=== PATIENT | male | born 1950 | race Caucasian/White ===

== ENCOUNTER 2017-06-18 11:46 | Emergency (ER) | payer MEDICARE, BC ==
[2017-06-18] MEDS ORDERED: NS 0.9% 1000 ML* 1,000 ML IV ONE (13:18)
--- NOTE | 2017-06-18 13:57 | RAD ---
INDICATION: Abdominal discomfort COMPARISON: None TECHNIQUE: Erect and supine views of the abdomen are submitted. FINDINGS: Bones: There are no acute bony findings. Soft tissues: The soft tissues appear normal. The psoas margins are sharp. Bowel gas pattern: There is no obstruction. There is large amount retained stool Calcifications: There are no abnormal calcifications. Other: None IMPRESSION: LARGE AMOUNT OF RETAINED STOOL.
[2017-06-18 14:02] LABS: Hematocrit 41 % (42-52); Hemoglobin 13.9 g/dl (14.0-18.0); Mean Corpuscular HGB Conc 34 g/dl (31-36); Mean Corpuscular Hemoglobin 34 pg (27-31); Mean Corpuscular Volume 99 fL (80-94); Mean Platelet Volume 8 um3 (7.4-10.4); Red Cell Distribution Width 12 % (10.5-15)
[2017-06-18] MEDS ORDERED: Polyethylene Glycol 3350* 17 GM PACKET PO PRN (14:05)
[2017-06-18] MEDS ORDERED: Sodium Phosphate ADULT ENEMA* 118 ml bottle PR ONE (14:05)
[2017-06-18] MEDS ORDERED: Magnesium CITRATE* 300 ML BTL PO ONE (14:05)
[2017-06-18 14:23] LABS: ALT 26 U/L (7-52); AST 23 U/L (13-39); Albumin 4.1 g/dL (3.2-5.2); Alkaline Phosphatase 77 U/L (34-104); Anion Gap 6 mmol/L (2-11); BUN/Creatinine Ratio 20.7 (8-20); Blood Urea Nitrogen 24 mg/dL (6-24); C Reactive Protein < 1.00 mg/L (< 5.00); CO2 Carbon Dioxide 27 mmol/L (22-32); Calcium 9.5 mg/dL (8.6-10.3); Chloride 100 mmol/L (101-111); EGFR African American 80.5 (>60); EGFR Non-African American 62.6 (>60); Globulin 2.7 g/dL (2-4); Glucose 102 mg/dL (70-100); Lipase 66 U/L (11.0-82.0); Potassium 4.2 mmol/L (3.5-5.0); Sodium 133 mmol/L (133-145); Total Protein 6.8 g/dL (6.4-8.9)
[2017-06-18 18:26] VITALS: BP 142/78
--- NOTE | 2017-06-18 18:35 | ED ---
Jw Mustafa Thomas, scribed for Darnell Zhang MD on 06/18/17 at 1339 . GI/ HPI - HPI Summary HPI Summary: The pt is a 66 y/o with a Hx of Lewy body dementia presenting to the ED c/o constipation on and off for the last three weeks. He says that he last took a BM a week ago. He denies abd pain or any other symptoms. He denies opioid use or history of abdominal surgeries. The patient lives alone. His son and daughter are in the room and provide much of the history. They suspect that he may be dehydrated. His neurologist is Dr. Brownlee. - History of Current Complaint Chief Complaint: EDGeneral Time Seen by Provider: 06/18/17 13:00 Stated Complaint: ABD PAIN Hx Obtained From: Patient, Family/Injector Assembler - son and daughter are in the room and provide much of history Onset/Duration: Started Weeks Ago - constipation on and off last three weeks, Still Present, Worse Since - last BM a week ago Timing: Constant Current Severity: Severe Pain Intensity: 0 Associated Signs and Symptoms: Positive: Constipation. Negative: Abdominal Pain Aggravating Factor(s): Nothing Alleviating Factor(s): Nothing - Allergy/Home Medications Allergies/Adverse Reactions: Allergies Allergy/AdvReac Type Severity Reaction Status Date / Time No Known Allergies Allergy Verified 06/18/17 16:52 Home Medications: Home Medications Donepezil TAB* [Aricept 5 MG TAB*] 5 mg PO DAILY 06/18/17 [History Confirmed ] Omeprazole CAP* [Prilosec CAP* 20 MG] 20 mg PO DAILY 06/18/17 [History Confirmed 06/18/17] Phenobarbital 97.2 mg PO BEDTIME 06/18/17 [History Confirmed 06/18/17] Quinapril (NF) [Accupril (NF)] 5 mg PO DAILY 06/18/17 [History Confirmed ] PMH/Surg Hx/FS Hx/Imm Hx Previously Healthy: No Cardiovascular History: Reports: Hx Coronary Artery Disease Neurological History: Reports: Other Neuro Impairments/Disorders - Hx of Lewy body dementia, epilepsy - Surgical History Surgery Procedure, Year, and Place: None Infectious Disease History: No Infectious Disease History: Denies: Traveled Outside the [place] in Last 30 Days - Family History Known Family History: Negative: Other - Negative for Lewy body dementia - Social History Occupation: Retired Lives: Alone Smoking Status (MU): Never Smoked Tobacco Review of Systems Negative: Fever Positive: Other - Constipation on and off for last three weeks. Last BM a week ago. Negative: Abdominal Pain All Other Systems Reviewed And Are Negative: Yes Physical Exam - Summary Physical Exam Summary: VITAL SIGNS: Reviewed. GENERAL: Patient is a well-developed and nourished male who is lying comfortable in the stretcher. Patient is not in any acute respiratory distress. HEAD AND FACE: No signs of trauma. No ecchymosis, hematomas or skull depressions. No sinus tenderness. EYES: PERRLA, EOMI x 2, No injected conjunctiva, no nystagmus. EARS: Hearing grossly intact. Ear canals and tympanic membranes are within normal limits. MOUTH: Oropharynx within normal limits. NECK: Supple, trachea is midline, no adenopathy, no JVD, no carotid bruit, no c- spine tenderness, neck with full ROM. CHEST: Symmetric, no tenderness at palpation LUNGS: Clear to auscultation bilaterally. No wheezing or crackles. CVS: Regular rate and rhythm, S1 and S2 present, no murmurs or gallops appreciated. ABDOMEN: Soft, non-tender. No signs of distention. No rebound no guarding, and no masses palpated. Bowel sounds are normal. EXTREMITIES: FROM in all major joints, no edema, no cyanosis or clubbing. NEURO: Alert but not oriented. No acute neurological deficits. Speech is normal and follows commands. SKIN: Dry and warm Triage Information Reviewed: Yes Vital Signs On Initial Exam: Initial Vitals Temp Pulse Resp BP Pulse Ox 98.1 F 96 16 156/79 99 06/18/17 11:49 06/18/17 11:49 06/18/17 11:49 06/18/17 11:49 06/18/17 11:49 Vital Signs Reviewed: Yes Diagnostics - Vital Signs Vital Signs Temp Pulse Resp BP Pulse Ox 06/18/17 11:49 98.1 F 96 16 156/79 99 - Laboratory Lab Results: Lab Results 06/18/17 06/18/17 Range/Units 13:46 13:46 WBC 6.0 (3.5-10.8) 10^3/ul RBC 4.10 (4.0-5.4) 10^6/ul Hgb 13.9 L (14.0-18.0) g/dl Hct 41 L (42-52) % MCV 99 H (80-94) fL MCH 34 H (27-31) pg MCHC 34 (31-36) g/dl RDW 12 (10.5-15) % Plt Count 185 (150-450) 10^3/ul MPV 8 (7.4-10.4) um3 Neut % (Auto) 81.6 (38-83) % Lymph % (Auto) 9.7 L (25-47) % [place] % (Auto) 8.0 (1-9) % Eos % (Auto) 0.3 (0-6) % Baso % (Auto) 0.4 (0-2) % Absolute Neuts (auto) 4.9 (1.5-7.7) 10^3/ul Absolute Lymphs (auto) 0.6 L (1.0-4.8) 10^3/ul Absolute Monos (auto) 0.5 (0-0.8) 10^3/ul Absolute Eos (auto) 0 (0-0.6) 10^3/ul Absolute Basos (auto) 0 (0-0.2) 10^3/ul Absolute Nucleated RBC 0 10^3/ul Nucleated RBC % 0 Sodium 133 (133-145) mmol/L Potassium 4.2 (3.5-5.0) mmol/L Chloride 100 L (101-111) mmol/L Carbon Dioxide 27 (22-32) mmol/L Anion Gap 6 (2-11) mmol/L BUN 24 (6-24) mg/dL Creatinine 1.16 (0.67-1.17) mg/dL Est GFR ( Amer) 80.5 (>60) Est GFR (Non-Af Amer) 62.6 (>60) BUN/Creatinine Ratio 20.7 H (8-20) Glucose 102 H (70-100) mg/dL Calcium 9.5 (8.6-10.3) mg/dL Total Bilirubin 0.60 (0.2-1.0) mg/dL AST 23 (13-39) U/L ALT 26 (7-52) U/L Alkaline Phosphatase 77 (34-104) U/L C-Reactive Protein < 1.00 (< 5.00) mg/L Total Protein 6.8 (6.4-8.9) g/dL Albumin 4.1 (3.2-5.2) g/dL Globulin 2.7 (2-4) g/dL Albumin/Globulin Ratio 1.5 (1-3) Lipase 66 (11.0-82.0) U/L Result Diagrams: 06/18/17 13:46 06/18/17 13:46 Lab Statement: Any lab studies that have been ordered have been reviewed, and results considered in the medical decision making process. - Radiology XR Abdomen Xray Interpretation: Positive (See Comments) - large amount of retained stool. ED physician has reviewed this report and agrees. Radiology Interpretation Completed By: Radiologist - EKG 13:49 Cardiac Rate: NL - 73 BPM EKG Interpretation: Normal sinus rhythm. Q Wave in III. No ST elevations. Nml axis. GIGU Course/Dx - Course Assessment/Plan: The pt is a 66 y/o with a Hx of Lewy body dementia presenting to the ED c/o constipation on and off for the last three weeks. He says that he last took a BM a week ago. He denies abd pain or any other symptoms. He denies opioid use or history of abdominal surgeries. The patient lives alone. His son and daughter are in the room and provide much of the history. They suspect that he may be dehydrated. His neurologist is Dr. Brownlee. Test results are without any significant abnormality. XR Abdo shows large amount of retained stool. Rectal examination was declined. In the ED course the patient was given IV fluids for hydration as well as Miralax, lactulose, magnesium citrate, and a Fleet anemia. Patient had a large bowel movement. At this point, the patient will be discharged home with medication and tomorrow he will hopefully have a bowel movement. Since there are no signs of obstruction, he can be safely discharged home with follow up by PCP. The patient is hemodynamically stable and alert and oriented x3. - Diagnoses Provider Diagnoses: Constipation Discharge - Discharge Plan Condition: Stable Disposition: HOME Prescriptions: Lactulose* 30 ml PO DAILY PRN #30 ml PRN Reason: Constipation Magnesium CITRATE* [Citrate of Magnesia*] 150 ml PO SEE INSTRUCTIONS #1 btl Polyethylene Glycol 3350* [Miralax*] 17 gm PO DAILY PRN #12 packet PRN Reason: Constipation Sodium Phosphate ADULT ENEMA* [Fleet Enema*] 1 enema NM BEDTIME PRN #1 btl PRN Reason: Constipation Patient Education Materials: Constipation (ED), High Fiber Diet (ED) Referrals: Sam Malhotra MD [Primary Care Provider] - 3 Days Additional Instructions: Follow up with Dr. Malhotra in 3 days. Return to the emergency room for any new or worsening symptoms. The documentation as recorded by the wJ fajardo Thomas accurately reflects the service I personally performed and the decisions made by , Darnell Zhang MD.
== END 2017-06-18 18:24 | disposition home or self-care (01) ==
LOC: ED 11:46
DX: G31.83 Neurocognitive disorder with Lewy bodies (principal); K59.00 Constipation, unspecified
CPT/HCPCS: 36415; 74020; 80053; 83690; 85025; 86140; 93005; 99284; A9270-GY

== ENCOUNTER 2017-08-12 07:53 | Emergency (ER) | payer BC, MEDICARE ==
[2017-08-12 08:12] VITALS: BP 146/82
--- NOTE | 2017-08-12 10:42 | UC ---
Danay Mustafa Gabriel, scribed for Vicky Haro MD on 08/12/17 at 0828 . Head Injury HPI - HPI Summary HPI Summary: This patient is a 67 year old M [place] [facility] accompanied by family member, s/p fall last night. Unclear trauma event, they think that he may have hit his head on the bedboard. However, this is unclear. unk loc. C/o neck discomfort, although pt reports this may not be new. No new vis / aud changes. No abd discomfort. No chest pain. + weakness. No focal weakness. No n/v. - History Of Current Complaint Chief Complaint: UCHeadInjury Stated Complaint: HEAD INJURY Time Seen by Provider: 08/12/17 08:16 Hx Obtained From: Patient Mechanism Of Injury: Fell getting out of bed Onset/Duration: Still Present Aggravating Factor(s): Nothing Associated Signs And Symptoms: Positive: Neck Pain - Allergies/Home Medications Allergies/Adverse Reactions: Allergies Allergy/AdvReac Type Severity Reaction Status Date / Time Beeswax Allergy Swelling Verified 08/12/17 08:35 Of Face,Lips,& Throat Fluticasone [From Flonase] Allergy Unknown Verified 08/12/17 08:35 Reaction Details Nasal [place] Allergy Unknown Uncoded 08/12/17 08:35 Reaction Details Home Medications: Home Medications Citalopram TAB* [Celexa TAB*] 10 mg PO DAILY 08/12/17 [History Confirmed ] Docusate Sodium [Colace] 100 mg PO DAILY 08/12/17 [History Confirmed 08/12/17] Garlic [Garlic Oil 1000] 1 tab PO DAILY 08/12/17 [History Confirmed 08/12/17] Lipoflavoniod 1 tab PO DAILY 08/12/17 [History Confirmed 08/12/17] Multiple Vitamins W/ Minerals [Multivitamin] 1 tab PO DAILY 08/12/17 [History Confirmed 08/12/17] PMH/Surg Hx/FS Hx/Imm Hx Previously Healthy: No - hx lewy body dementia - Surgical History Surgical History: Yes Surgery Procedure, Year, and Place: Cardiac Cath- [facility] - Family History Known Family History: Negative: Other - Negative for Lewy body dementia - Social History Alcohol Use: None Substance Use Type: None Smoking Status (MU): Never Smoked Tobacco - Immunization History Most Recent Influenza Vaccination: 05/2017 Review of Systems Constitutional: Fatigue Skin: Other - contusion on right forehead Eyes: Negative ENT: Negative Respiratory: Negative Cardiovascular: Negative Gastrointestinal: Negative Genitourinary: Negative Motor: Negative Neurovascular: Negative Musculoskeletal: Negative Neurological: Negative Psychological: Negative Is Patient Immunocompromised?: No All Other Systems Reviewed And Are Negative: Yes - Comments Additional Review of Systems Comments: see HPI Physical Exam Triage Information Reviewed: Yes Appearance: Thin - sits up but able to lie back ok. Vital Signs: Initial Vital Signs Temp 98.3 F 08/12/17 08:01 Pulse 82 08/12/17 08:01 Resp 18 08/12/17 08:01 BP 146/82 08/12/17 08:01 Pulse Ox 100 08/12/17 08:01 Vital Signs Reviewed: Yes Eye Exam: Normal - arcus senilis perrla eomi to gross exam. ENT Exam: Normal Neck exam: Normal - stiff. diffuse discomfort "on the spine of my neck" no focal discomfort. Respiratory Exam: Normal Respiratory: Positive: Chest non-tender, Lungs clear, Normal breath sounds, Other: - no dyspnea, no tachypnea, normal respiratory rate Cardiovascular Exam: Normal Cardiovascular: Positive: RRR, Pulses Normal, Other: - good general skin color, good capillary refill Abdominal Exam: Normal Abdomen Description: Positive: Nontender, No Organomegaly, Soft Bowel Sounds: Positive: Present Musculoskeletal Exam: Normal - moves all 4 exts. Distal sens LT present. Neurological Exam: Other - CN 2- 12 grossly intact; however, does not appreciate smell of alcohol swab. Unclear if this is a new or chronic issue. Moves all 4 ext's, slowly. O x person, place, month year. Psychological Exam: Normal - conversing easily and appropriately, soft spoken slow speech. Skin Exam: Normal Skin: Positive: Other - no visible or reported rash R forehead / scalp with abrasion approx 5cm x 3cm and central small hematoma. No step off appreciated. - Additional Comments Head: Pt has a 3x5 cm contusion on right side of forehead Diagnostics - EKG Cardiac Rate: NL Cardiac Rhythm: Sinus: Normal - 85 BPM, MI 59, QRSD 85 no old EKG to compare to Head Injury Course/Dx - Course Course Of Treatment: Blood glucose noted. EKG reviewed, no recent old for comp. Recommend transfer to ED. Pt and family agree to EMS transport. Questions as posed answered to the best of my ability. - Differential Dx/Diagnosis Provider Diagnoses: Fall, head injury, in the setting of chronic deteriorating neurologic illness. Discharge - Discharge Plan Condition: Stable Disposition: TRANS HIGHER LVL OF CARE FAC Referrals: Sam Malhotra MD [Primary Care Provider] - The documentation as recorded by the Danay fajardo Gabriel accurately reflects the service I personally performed and the decisions made by me, Vicky Haro MD.
== END 2017-08-12 08:49 | disposition short-term general hospital (02) ==
LOC: UCEAST 07:53
DX: S09.90XA Unspecified injury of head, initial encounter (principal); S00.83XA Contusion of other part of head, initial encounter; W19.XXXA Unspecified fall, initial encounter; Y93.9 Activity, unspecified; Y92.9 Unspecified place or not applicable; R53.83 Other fatigue; G31.83 Neurocognitive disorder with Lewy bodies; F02.80 Dementia in other diseases classified elsewhere, unspecified severity, without behavioral disturbance, psychotic disturbance, mood disturbance, and anxiety
CPT/HCPCS: 93005; 99213; G0463

== ENCOUNTER 2017-08-12 09:09 | Emergency (ER) | payer MEDICARE, BC ==
[2017-08-12] MEDS ORDERED: Morphine INJ* 4 MG/ML 1 ML CARPUJECT IV ONE (10:14)
[2017-08-12 10:20] LABS: Hematocrit 36 % (42-52); Hemoglobin 12.6 g/dl (14.0-18.0); Mean Corpuscular HGB Conc 35 g/dl (31-36); Mean Corpuscular Hemoglobin 34 pg (27-31); Mean Corpuscular Volume 97 fL (80-94); Mean Platelet Volume 8 um3 (7.4-10.4); Red Blood Count 3.74 10^6/ul (4.0-5.4); Red Cell Distribution Width 13 % (10.5-15); White Blood Count 3.8 10^3/ul (3.5-10.8)
[2017-08-12 10:35] LABS: ALT 24 U/L (7-52); AST 26 U/L (13-39); Albumin 3.6 g/dL (3.2-5.2); Alkaline Phosphatase 86 U/L (34-104); Anion Gap 4 mmol/L (2-11); BUN/Creatinine Ratio 20.6 (8-20); Blood Urea Nitrogen 21 mg/dL (6-24); CO2 Carbon Dioxide 29 mmol/L (22-32); Calcium 9.3 mg/dL (8.6-10.3); Chloride 95 mmol/L (101-111); EGFR African American 93.1 (>60); EGFR Non-African American 72.4 (>60); Globulin 2.4 g/dL (2-4); Glucose 120 mg/dL (70-100); Potassium 4.2 mmol/L (3.5-5.0); Sodium 128 mmol/L (133-145)
--- NOTE | 2017-08-12 10:59 | RAD ---
Indication: Syncope. CT of the brain was performed without IV contrast. Ventricular structures are midline. No midline shift is noted. The extra-axial spaces are unremarkable. There is no evidence of intracranial mass or hemorrhage. No other high or low density lesions are identified. Mastoid air cells and paranasal sinuses are unremarkable. IMPRESSION: No intracranial mass or hemorrhage is identified.
--- NOTE | 2017-08-12 11:05 | RAD ---
Indication: Syncope. CT of the cervical spine was obtained in the axial plane. Sagittal and coronal reconstructed images were obtained. Skull base demonstrates mastoid air cells to be intact. No definite evidence of a basilar skull fracture is noted. The C1 ring is intact. No fracture is noted. At C2-C3, C3-C4, C4-C5 there is mild degenerative disc disease. There is no fracture noted. Facet arthropathy is noted however no central or foraminal stenosis is identified. Disc space narrowing at C5-C6 with spondylytic ridge flattens the thecal sac. No central foraminal stenosis is noted. At C6-C7 and C7-T1 no fracture is identified. IMPRESSION: Degenerative disc disease most severe at C5-C6 and C6-C7. Osteophyte formation is noted. No fracture is identified.
[2017-08-12 11:12] LABS: TSH (Thyroid Stimulating Horm) 0.94 mcIU/mL (0.34-5.60)
[2017-08-12 11:18] LABS: Alcohol < 10 mg/dL (<10)
[2017-08-12] MEDS ORDERED: NS 0.9% 1000 ML* 1,000 ML IV ONE (11:34)
--- NOTE | 2017-08-12 11:43 | RAD ---
HISTORY: Syncope, head injury COMPARISONS: None VIEWS: 2: Frontal and lateral views of the chest. FINDINGS: CARDIOMEDIASTINAL SILHOUETTE: The cardiomediastinal silhouette is normal. DONOVAN: The donovan are normal. PLEURA: The costophrenic angles are sharp. No pleural abnormalities are noted. LUNG PARENCHYMA: There is hyperinflation with flattening of the diaphragm and expansion of the AP diameter of the chest. ABDOMEN: The upper abdomen is clear. There is no subphrenic gas. BONES AND SOFT TISSUES: No bone or soft tissue abnormalities are noted. OTHER: None. IMPRESSION: HYPERINFLATION, CONSISTENT WITH COPD. NO ACTIVE CARDIOPULMONARY DISEASE.
[2017-08-12 11:45] LABS: Urine Bilirubin Negative (Negative); Urine Glucose Negative (Negative); Urine Nitrite Negative (Negative)
[2017-08-12 11:52] LABS: Benzodiazepine Urine Screen None Detected (None Detect)
[2017-08-12 13:13] VITALS: BP 163/81
--- NOTE | 2017-08-13 08:36 | ED ---
Vazquez Mustafa Angela, scribed for Darnell Zhang MD on 08/12/17 at 0949 . Head Injury - HPI Summary HPI Summary: This pt is a 67 y/o male [place] [facility] [place] last [place]. Per daughter, pt got up during the night and sat up on the edge of the bed, falling on the floor. Pt does not remember if he fell once or twice. He does not know if he passed out or tripped. Pt notes an abrasion on right forehead and neck pain ( placed on a c-collar by Urgent Care). Daughter reports the floor has a thick carpet and pt probably hit his head on the frame of the bed. Pt denies headache. PMHx includes dementia. Pt is a poor historian. HPI is limited due to level 5 caveat - pt has dementia. - History Of Current Complaint Chief Complaint: EDSyncope Stated Complaint: SYNCOPE/HEAD INJURY Hx Obtained From: Patient Mechanism Of Injury: Other - fell getting out of bed Onset/Duration: Started Hours Ago, Traumatic, Still Present Onset of Pain: Hours Pain Intensity: 0 Location: Discrete At: - neck Associated Signs And Symptoms: Neck Pain, Other: - abrasion on right forehead - Allergies/Home Medications Allergies/Adverse Reactions: Allergies Allergy/AdvReac Type Severity Reaction Status Date / Time Beeswax Allergy Swelling Verified 08/12/17 08:35 Of Face,Lips,& Throat Fluticasone [From Flonase] Allergy Unknown Verified 08/12/17 08:35 Reaction Details Nasal [place] Allergy Unknown Uncoded 08/12/17 08:35 Reaction Details Home Medications: Home Medications Aspirin 81 mg PO DAILY 08/12/17 [History Confirmed 08/12/17] PMH/Surg Hx/FS Hx/Imm Hx Cardiovascular History: Reports: Hx Coronary Artery Disease Neurological History: Reports: Other Neuro Impairments/Disorders - Hx of Lewy body dementia, epilepsy - Surgical History Surgery Procedure, Year, and Place: Cardiac [place]- [facility] Infectious Disease History: No Infectious Disease History: Denies: Traveled Outside the [place] in Last 30 Days - Family History Known Family History: Negative: Other - Negative for Lewy body dementia - Social History Alcohol Use: None Substance Use Type: Reports: None Smoking Status (MU): Never Smoked Tobacco Review of Systems Negative: Fever, Chills Musculoskeletal: Other - neck pain Skin: Other - abrasion on right forehead Neurological: Other - dementia Negative: Headache All Other Systems Reviewed And Are Negative: Yes - Comments Additional Review of Systems Comments: ROS is limited due to level 5 caveat - pt has dementia Physical Exam - Summary Physical Exam Summary: VITAL SIGNS: Reviewed. GENERAL: Patient is a well-developed and nourished male who is lying comfortable in the stretcher. Patient is not in any acute respiratory distress. HEAD AND FACE: No signs of trauma. No ecchymosis, hematomas or skull depressions. No sinus tenderness. EYES: PERRLA, EOMI x 2, No injected conjunctiva, no nystagmus. EARS: Hearing grossly intact. Ear canals and tympanic membranes are within normal limits. MOUTH: Oropharynx within normal limits. NECK: Supple, trachea is midline, no adenopathy, no JVD, no carotid bruit, no c- spine tenderness, neck with full ROM. CHEST: Symmetric, no tenderness at palpation LUNGS: Clear to auscultation bilaterally. No wheezing or crackles. CVS: Regular rate and rhythm, S1 and S2 present, no murmurs or gallops appreciated. ABDOMEN: Soft, non-tender. No signs of distention. No rebound no guarding, and no masses palpated. Bowel sounds are normal. EXTREMITIES: FROM in all major joints, no edema, no cyanosis or clubbing. NEURO: Alert but not oriented. Pt has history of dementia. No acute neurological deficits. Speech is normal and follows commands. SKIN: Dry and warm. Abrasion on right side of the forehead. Triage Information Reviewed: Yes Vital Signs On Initial Exam: Initial Vitals Temp Pulse Resp BP Pulse Ox 98.5 F 85 16 136/70 98 08/12/17 09:17 08/12/17 09:17 08/12/17 09:17 08/12/17 09:17 08/12/17 09:17 Vital Signs Reviewed: Yes - Maxx Coma Scale Coma Scale Total: 15 Diagnostics - Vital Signs Vital Signs Temp Pulse Resp BP Pulse Ox 08/12/17 09:20 9 08/12/17 09:19 136/70 08/12/17 09:17 98.5 F 85 16 136/70 98 - Laboratory Result Diagrams: 08/12/17 10:11 08/12/17 10:11 Lab Statement: Any lab studies that have been ordered have been reviewed, and results considered in the medical decision making process. - Radiology Chest XR Xray Interpretation: Positive (See Comments) - IMPRESSION: Hyperinflation, consistent with COPD. No active cardiopulmonary disease. ED physician has reviewed this radiology report and agrees. Radiology Interpretation Completed By: Radiologist - CT Brain CT CT Interpretation: No Acute Changes - IMPRESSION: No intracranial mass or hemorrhage is identified. ED physician has reviewed this radiology report and agrees. CT Interpretation Completed By: Radiologist Cervical spine CT CT Interpretation: Positive (See Comments) - IMPRESSION: Degenerative disc disease most severe at C5-C6 and C6-C7. Osteophyte formation is noted. No fracture is identified. ED physician has reviewed this radiology report and agrees. CT Interpretation Completed By: Radiologist - EKG 1039 Cardiac Rate: NL EKG Rhythm: Sinus Rhythm - at 79 bpm EKG Interpretation: No ST elevations EKG Comparison: No Significant Change - similar to previous EKG on 06/18/17. Re-Evaluation - Re-Evaluation First Eval Re-Evaluation Time: 12:38 Comment: I reviewed the CT and XR results with the pt. Head Injury Course/Dx Assessment/Plan: This pt is a 67 y/o male presenting to [facility] c/o fall last night. Per daughter, pt got up during the night and sat up on the edge of the bed, falling on the floor. Pt does not remember if he fell once or twice. He does not know if he passed out or tripped. Pt notes an abrasion on right forehead and neck pain (placed on a c-collar by Urgent Care). Daughter reports the floor has a thick carpet and pt probably hit his head on the frame of the bed. Pt denies headache. PMHx includes dementia. Pt is a poor historian. HPI is limited due to level 5 caveat - pt has dementia. Test results show a slight anemia, sodium of 128, glucose of 120. Urinalysis is negative for UTI. Head CT shows no intracranial mass or hemorrhage is identified. C-spine CT reveals degenerative disc disease most severe at C5-C6 and C6-C7. Osteophyte formation is noted. No fracture is identified. In the ED course, the pt is asymptomatic, ambulating without any distress. Therefore, the pt will be discharged home with follow up from his PCP. Pt is hemodynamically stable, alert and oriented x3. - Diagnoses Provider Diagnoses: Head contusion, Accidental fall Discharge - Discharge Plan Condition: Stable Disposition: HOME Patient Education Materials: Contusion in Adults (ED), Fall Prevention (ED) Referrals: Sam Malhotra MD [Primary Care Provider] - Additional Instructions: Please follow up with your primary care providers. RETURN TO THE ED FOR ANY WORSENING SYMPTOMS. The documentation as recorded by the Vazquez fajardo Angela accurately reflects the service I personally performed and the decisions made by Vicente suazo Walter, MD.
== END 2017-08-12 13:13 | disposition home or self-care (01) ==
LOC: ED 09:09
DX: S00.93XA Contusion of unspecified part of head, initial encounter (principal); W06.XXXA Fall from bed, initial encounter; Y92.9 Unspecified place or not applicable; M50.320 Other cervical disc degeneration, mid-cervical region, unspecified level; G31.83 Neurocognitive disorder with Lewy bodies; F02.80 Dementia in other diseases classified elsewhere, unspecified severity, without behavioral disturbance, psychotic disturbance, mood disturbance, and anxiety; G40.909 Epilepsy, unspecified, not intractable, without status epilepticus
CPT/HCPCS: 36415; 70450; 71020; 72125; 80053; 80307; 80320; 81003; 82140; 83735; 84443; 84484; 85025; 93005; 96360; 96374; 99284; G0480